=== PATIENT | female | born 1960 | race Caucasian/White ===

== ENCOUNTER 2017-02-10 21:12 | Emergency (ER) | payer OTHER ==
[~2017-02-10] VITALS: Ht 152.4 cm; Wt 64.1 kg
[~2017-02-10 21:12] MED LIST: ASPI-664 PO; CARV3.1260 PO; LOSA50TA6 PO; NIFE60TA7 PO
[2017-02-10 21:24] VITALS: Ht 152.4 cm; Wt 64.1 kg
[2017-02-10] MEDS ORDERED: DIPHENHYDRAMINE 25 MG CAP PO ONE (23:00)
[2017-02-10] MEDS ORDERED: HYDR12.58 PO (23:13)
--- NOTE | 2017-02-10 23:55 | ERD ---
ER Documentation Chief Complaint Chief Complaint states tongue swelling x 4 hours. HPI 56-year-old female patient with a previous history of MT, hypertension presents to the ED complaining of a swollen tongue that started at 7 PM. Denies any shortness of breath. Patient reports that she felt like her tongue was getting wider and it felt itchy. Reports that the swelling resolved. Denies any chest pain, shortness of breath, nausea, vomiting, fever, chills. Reports that this also happened around the same time when she was taking enalapril 3 years ago. States that now she is taking losartan. Reports that she also takes vitamin D, fluticasone, nifedipine, clopidogrel, carvedilol. ROS All systems reviewed and are negative except as per history of present illness. Medications Home Meds Active Scripts Hydrochlorothiazide* (Hydrochlorothiazide*) 12.5 Mg Tablet, 12.5 MG PO DAILY, # 30 TAB Prov:DONAVON AMES PA-C 02/10/17 Aspirin* (Aspirin* EC) 81 Mg Tablet.dr, 81 MG PO DAILY for 30 Days, TAB Prov:HILDA LUGO BARKEEPER 11/30/15 Reported Medications Nifedipine* (Nifedipine ER*) 60 Mg Tablet.sa, 60 MG PO DAILY, TAB.SA 11/29/15 Carvedilol* (Carvedilol*) 3.125 Mg Tablet, 3.125 MG PO BID, #60 TAB 11/29/15 Losartan Potassium* (Losartan Potassium*) 50 Mg Tablet, 50 MG PO DAILY, TAB 11/29/15 Allergies Allergies: Coded Allergies: No Known Allergy (Unverified , 11/30/15) PMhx/Soc History of Surgery: No Anesthesia Reaction: No Hx Neurological Disorder: No Hx Respiratory Disorders: No Hx Cardiac Disorders: Yes (HTN ) Hx Psychiatric Problems: No Hx Miscellaneous Medical Probl: No Hx Alcohol Use: No Hx Substance Use: No Hx Tobacco Use: No Smoking Status: Never smoker Physical Exam Vitals Vital Signs Date Time Temp Pulse Resp B/P Pulse Ox O2 Delivery O2 Flow Rate FiO2 02/10/17 21:24 98.0 70 20 135/78 99 Physical Exam Const: [id number], well-nourished. In no acute distress. Head: Atraumatic, normocephalic Eyes: Normal Conjunctiva without injection. No purulent discharge. PERRL. EOMI ENT: Normal external ear. Ear canal without erythema. Tympanic membrane pearly braxton without effusion or bulging. Nasal canal clear with normal turbinates. Moist oropharynx without tonsillar exudates. Non-erythematous pharynx. Uvula midline. No drooling. No trismus. No angioedema noted. Neck: Full range of motion. No meningismus. No cervical lymphadenopathy. Resp: Clear to auscultation bilaterally. No wheezing, rhonchi, rales, or crackles. No accessory muscle use. No retractions. Cardio: Regular rate and rhythm. No murmurs, rubs or gallops. Abd: Soft, non tender, non distended. Normal bowel sounds. No palpable masses. No rebound tenderness. No guarding. Skin: No petechiae or rashes Back: No midline tenderness. No CVA tenderness. Ext: No cyanosis, or edema. Neur: Awake and alert. Psych: Normal Mood and Affect Results 24 hrs Current Medications Medications (Trade) Dose Ordered Sig/Tiffanie Route PRN Reason Start Time Stop Time Status Last Admin Dose Admin Diphenhydramine HCl (Benadryl) 25 mg ONCE ONCE PO 02/10/17 23:00 02/10/17 23:01 DC 02/10/17 23:17 Procedures/MDM 56-year-old female patient with a past medical history of heart attack, hypertension presents to the ED complaining of angioedema that started at 7 PM but has now resolved. Patient is afebrile and nontoxic-appearing. Patient has normal vital signs. This case was discussed with my supervising physician, Dr. Bailey who stated that managed on outpatient basis. Patient's angioedema could likely be secondary to her taking losartan. She was instructed to discontinue losartan and a prescription for hydrochlorothiazide will be written for patient. Patient will be started on the lowest dosage, 12.5 mg and is instructed to follow-up with her primary care physician in 2 days, on Sunday for readjustment of her medication or changing to another antihypertensive medication that is appropriate for her HTN management that won't give her the same adverse reaction. She was given Benadryl here in the ED because she reported that it was itchy. Low suspicion for anaphylaxis, atypical acute myocardial infarction, Reynaldo's angina, peritonsillar abscess, strep pharyngitis , retropharyngeal abscess, pneumothorax, pneumonia, cardiac tamponade, pulmonary embolism, pleural effusion, AAA, aortic dissection, Boerhaave's syndrome, cardiac dysrhythmias, meningitis, intracranial bleed, seizure, stroke , TIA or other emergent conditions. Discharge medications: HCTZ Follow up with primary care physician in 1-2 days. Instructed patient to return to the ED sooner for any worsening symptoms. Patient's questions were answered. Patient understood and agreed with discharge plan. Patient discharged stable. Departure Diagnosis: Primary Impression: Mild tongue swelling Condition: Stable Patient Instructions: Angioedema Referrals: COMMUNITY CLINICS YOU HAVE RECEIVED A MEDICAL SCREENING EXAM AND THE RESULTS INDICATE THAT YOU DO NOT HAVE A CONDITION THAT REQUIRES URGENT TREATMENT IN THE EMERGENCY DEPARTMENT. FURTHER EVALUATION AND TREATMENT OF YOUR CONDITION CAN WAIT UNTIL YOU ARE SEEN IN YOUR DOCTORS OFFICE WITHIN THE NEXT 1-2 DAYS. IT IS YOUR RESPONSIBILITY TO MAKE AN APPOINTMENT FOR FOLOW-UP CARE. IF YOU HAVE A PRIMARY DOCTOR --you should call your primary doctor and schedule an appointment IF YOU DO NOT HAVE A PRIMARY DOCTOR YOU CAN CALL OUR PHYSICIAN REFERRAL HOTLINE AT IF YOU CAN NOT AFFORD TO SEE A PHYSICIAN YOU CAN CHOSE FROM THE FOLLOWING [facility] [address] [facility]. [facility] [address] [facility] [facility] [address] [facility] [address] [facility] [facility] [address] [facility]. [facility]. [address] [facility]. [facility] YOU HAVE RECEIVED A MEDICAL SCREENING EXAM AND THE RESULTS INDICATE THAT YOU DO NOT HAVE A CONDITION THAT REQUIRES URGENT TREATMENT IN THE EMERGENCY DEPARTMENT. FURTHER EVALUATION AND TREATMENT OF YOUR CONDITION CAN WAIT UNTIL YOU ARE SEEN IN YOUR DOCTORS OFFICE WITHIN THE NEXT 1-2 DAYS. IT IS YOUR RESPONSIBILITY TO MAKE AN APPOINTMENT FOR FOLOW-UP CARE. IF YOU HAVE A PRIMARY DOCTOR --you should call your primary doctor and schedule and appointment IF YOU DO NOT HAVE A PRIMARY DOCTOR YOU CAN CALL OUR PHYSICIAN REFERRAL HOTLINE AT . IF YOU CAN NOT AFFORD TO SEE A PHYSICIAN YOU CAN CHOSE FROM THE FOLLOWING [facility] INSTITUTIONS: [facility] [address] [place] [address] [facility] [address] [place] [address] [facility] + [facility] [address] [place] [address] [facility] URGENT CARE/SPECIALTIES Additional Instructions: Deje de ronaln-esta podra ser la razn de carlson hinchazn de la lengua. Llame a carlson mdico de cabecera para sanket catracho el lunes para la evaluacin adicional y el tratamiento de carlson presin arterial radha. Consulte al mdico antes o regrese aqu si carlson afeccin empeora antes de carlson catracho tiempo-falta de aliento, empeoramiento de la hinchazn, etc. DONAVON AMES PA-C Feb 10, 2017 23:55
== END 2017-02-10 23:26 | disposition home or self-care (01) ==
LOC: FTE 21:12
DX: K14.8 Other diseases of tongue (principal); I10 Essential (primary) hypertension; Z79.82 Long term (current) use of aspirin
CPT/HCPCS: 99283